=== PATIENT | male | born 1970 | race Caucasian/White ===

== ENCOUNTER 2020-05-25 08:52 | Emergency (ER) | payer OTHER ==
[2020-07-05] MEDS ORDERED: ANASTROZOLE1 MG PO (14:19)
[2020-07-05] MEDS ORDERED: LIPITOR20 MG PO (14:20)
[2020-07-05] MEDS ORDERED: DEPO-TESTO200 MG/1 M IJ (14:22)
[2020-07-05] MEDS ORDERED: VIT D 3 PO (14:23)
== END 2020-05-25 09:50 | disposition home or self-care (01) ==
LOC: FER 08:52
DX: M54.5 Low back pain (principal); I10 Essential (primary) hypertension; Z98.890 Other specified postprocedural states
CPT/HCPCS: 72170

== ENCOUNTER → 2020-07-09 | Day surgery (SDC) | payer OTHER ==
[~2020-07-09] VITALS: Ht 182.9 cm; Wt 127.9 kg
[~2020-07-09] MED LIST: ANASTROZOLE1 MG PO; AZITHROMYCIN250 MG PO; CEFPODOXIME PR200 MG PO; DEPO-TESTO200 MG/1 M IJ; LIPITOR20 MG PO; VIT D 3 PO
[2020-07-09 07:37] LABS: HCT 55.2 % (42.0-52.0); HGB 19.3 g/dl (13.2-18.0); MCH 31.1 pg (25.0-31.0); MPV 9.3 fL (6.0-9.5); RBC 6.2 M/uL (4.70-6.00); RDW 13.2 % (11.5-14.0); WBC 6.8 K/uL (4.0-10.5)
[2020-07-09 07:59] LABS: ALBUMIN 4.5 g/dL (3.4-5.0); BILIRUBIN - TOTAL 1.1 mg/dL (0.2-1.0); BUN/CREAT RATIO (CALC) 13.3 RATIO; CREATININE 0.9 mg/dL (0.67-1.17); GLOBULIN (CALCULATION) 3.3 g/dL; TOTAL PROTEIN 7.8 g/dL (6.4-8.2)
== END | disposition home or self-care (01) ==
LOC: FAS 04-09 08:00
PROVIDERS: Surgery
DX: Z12.11 Encounter for screening for malignant neoplasm of colon (principal); M19.90 Unspecified osteoarthritis, unspecified site; E78.5 Hyperlipidemia, unspecified; I10 Essential (primary) hypertension; G47.30 Sleep apnea, unspecified; Z20.822 Contact with and (suspected) exposure to COVID-19; Z79.899 Other long term (current) drug therapy; Z82.49 Family history of ischemic heart disease and other diseases of the circulatory system; Z98.1 Arthrodesis status; Z98.890 Other specified postprocedural states; Z83.3 Family history of diabetes mellitus; Z87.891 Personal history of nicotine dependence
CPT/HCPCS: 36415; 80053; J2704; J7120

== ENCOUNTER 2020-11-11 16:19 | Emergency (ER) | payer OTHER ==
[~2020-11-11 16:19] MED LIST changes: -AZITHROMYCIN250 MG PO; -CEFPODOXIME PR200 MG PO
[2020-11-11 18:11] LABS: BASOPHIL 0.1 % (0-2); EOSINOPHIL 0 % (0-5); HCT 47.4 % (42.0-52.0); LYMPHOCYTE 19.6 % (15-48); MCH 30.6 pg (25.0-31.0); MCHC 33.8 g/dL (32.0-36.0); MCV 90.6 fL (78.0-100.0); MONOCYTE 6.2 % (0-12); MPV 9.4 fL (6.0-9.5); NEUTROPHIL 73.7 % (41-80); NRBC 0; PLT 214 K/uL (150-400); RBC 5.23 M/uL (4.70-6.00); RDW 13.9 % (11.5-14.0)
[2020-11-11 18:38] LABS: ALBUMIN 3.6 g/dL (3.4-5.0); BILIRUBIN - TOTAL 0.5 mg/dL (0.2-1.0); BUN/CREAT RATIO (CALC) 23.3 RATIO; CREATININE 1.03 mg/dL (0.67-1.17); POTASSIUM 4.4 mmol/L (3.5-5.1); TOTAL PROTEIN 6.6 g/dL (6.4-8.2)
[2020-11-11] MEDS ORDERED: AZITHROMYCIN250 MG PO (18:45)
[2020-11-11] MEDS ORDERED: CEFPODOXIME PR200 MG PO (18:45)
[2020-11-11 19:49] LABS: INFLUENZA A NAA NEGATIVE (NEGATIVE)
[2020-11-11 19:55] LABS: CORONAVIRUS 2019 SARS-COV-2 POSITIVE (NEGATIVE)
[2020-11-11 20:21] LABS: C-REACTIVE PROTEIN 3.7 mg/dL (<=0.90)
== END 2020-11-11 22:52 | disposition home or self-care (01) ==
LOC: FER 16:19
PROVIDERS: Emergency Medicine; Internal Medicine
DX: U07.1 COVID-19 (principal); J12.82 Pneumonia due to coronavirus disease 2019; R74.01 Elevation of levels of liver transaminase levels
CPT/HCPCS: 36415; 71045; 80053; 82728; 83615; 84145; 85025; 86140; J0456; J0696; J7050; M0243; Q0244; U0002